=== PATIENT | female | born 1950 | race Caucasian/White ===

== ENCOUNTER 2016-12-13 12:11 | Inpatient (IN) | payer MEDICAID, MEDICARE ==
[~2016-12-13] VITALS: Ht 157.5 cm; Wt 71.0 kg
[~2016-12-13 12:11] MED LIST: CEFOTETAN 2 GM ONE; DEXAMETHASONE 4 MG/ML, 1ML ONE; GLYCOPYRROLATE 0.4 MG/2 ML, 2ML ONE; KETOROLAC 30 MG/1 ML ONE; LIDOCAINE-MPF 2% ,5ML ONE; METOCLOPRAMIDE 5 MG/ML, 2ML ONE; NEOSTIGMINE 1 MG/ML, 10ML ONE; ONDANSETRON 2MG/ML, 2ML ONE; PROPOFOL 10 MG/ML, 20ML ONE; ROCURONIUM 10MG/ML,5ML ONE; SUCCINYLCHOLINE 20 MG/ML, 10ML ONE
[2016-12-13] MEDS ORDERED: SODIUM CHLORIDE FLUSH 10ML SYR IVF ONE (13:00)
[2016-12-13 13:19] LABS: HEMATOCRIT 42.8 % (34.6-47.8); HEMOGLOBIN 14.9 g/dL (11.7-16.4); WHITE BLOOD COUNT 7.1 x10^3/uL (3.4-10)
[2016-12-13 13:31] LABS: ASPARTATE AMINO TRANSFERASE 80 U/L (15-37); BLOOD UREA NITROGEN 11 mg/dL (7-18)
[2016-12-13 13:35] LABS: IS PT STATUS REG ER OR PRE ER? YES
[2016-12-13] MEDS ORDERED: CEFOTETAN PMX 1GM/50ML 50 ML IV ONE (16:00)
[2016-12-13] MEDS ORDERED: CEFOTETAN PMX 1GM/50ML 50 ML ONE (16:40)
[2016-12-13] MEDS ORDERED: D5%-0.45NACL+KCL 20MEQ 1,000 ML IV SCH (17:15)
[2016-12-13] MEDS ORDERED: morphine SULFATE 10 MG/ML, 1ML IVPush PRN (17:30)
[2016-12-13] MEDS ORDERED: ACETAMINOPHEN 325 MG TABLET PO PRN (17:30)
[2016-12-13] MEDS ORDERED: PROMETHAZINE 25 MG/ML, 1ML IM PRN (17:30)
[2016-12-13] MEDS ORDERED: BISACODYL 10 MG SUPP PR PRN (17:30)
[2016-12-13] MEDS ORDERED: ONDANSETRON ODT 4 MG PO PRN (17:30)
[2016-12-13] MEDS: ENOXAPARIN 40 MG/0.4 ML SQ SCH (17:30)
[2016-12-13] MEDS ORDERED: HYDROcodone/APAP 5/325 TABLET PO PRN (17:30)
[2016-12-13] MEDS ORDERED: DOCUSATE 100 MG CAPSULE PO PRN (17:30)
[2016-12-13 19:20] VITALS: BP 128/50
[2016-12-14 01:42] VITALS: BP 150/80
[2016-12-14 05:47] LABS: HEMATOCRIT 38.8 % (34.6-47.8); HEMOGLOBIN 13.5 g/dL (11.7-16.4); WHITE BLOOD COUNT 4.2 x10^3/uL (3.4-10)
[2016-12-14 05:52] LABS: BLOOD UREA NITROGEN 15 mg/dL (7-18)
[2016-12-14 05:55] LABS: ASPARTATE AMINO TRANSFERASE 47 U/L (15-37)
[2016-12-14] MEDS ORDERED: BUPIVACAINE/PF 0.5% ONE (06:49)
[2016-12-14] MEDS ORDERED: EPINEPHRINE 1 MG/ML, 1ML ONE (06:49)
[2016-12-14] MEDS ORDERED: FENTANYL PF 100 MCG/2ML ONE ×2 (07:20→08:36)
[2016-12-14] MEDS: CEFOTETAN PMX 1GM/50ML 50 ML IV SCH ×2 (07:30→19:43)
[2016-12-14] MEDS ORDERED: ACETAMINOPHEN 325 MG TABLET PO PRN ×2 (08:00→15:30)
[2016-12-14] MEDS ORDERED: MEPERIDINE/PF 25MG/0.5ML IVPush PRN (08:00)
[2016-12-14] MEDS ORDERED: PROMETHAZINE 25 MG/ML, 1ML IV PRN (08:00)
[2016-12-14] MEDS ORDERED: OXYcodone 5 MG/5 ML ORAL.SOL UDC PO PRN (08:00)
[2016-12-14] MEDS ORDERED: HYDROmorphone 1 MG/ML, 1ML IV PRN (08:00)
[2016-12-14] MEDS ORDERED: LABETALOL 5MG/ML, 20ML IV PRN (08:00)
[2016-12-14] MEDS ORDERED: MIDAZOLAM 1 MG/ML, 2ML IV PRN (08:00)
[2016-12-14] MEDS ORDERED: hydrALAzine 20 MG/ML, 1ML IV PRN (08:00)
[2016-12-14] MEDS ORDERED: ONDANSETRON 2MG/ML, 2ML IVPush PRN (08:00)
[2016-12-14] MEDS ORDERED: IBUPROFEN 200 MG TABLET PO PRN ×2 (08:30→15:30)
[2016-12-14] MEDS ORDERED: OXYcodone 5 MG/5 ML ORAL.SOL UDC ONE (08:36)
[2016-12-14] MEDS: FENTANYL PF 100 MCG/2ML IV PRN ×2 (08:37→08:50)
[2016-12-14] MEDS ORDERED: D5%-0.45NACL+KCL 20MEQ 1,000 ML IV SCH (08:46)
[2016-12-14] MEDS: HYDROcodone/APAP 5/325 TABLET PO PRN ×2 (15:11→19:43)
[2016-12-14] MEDS ORDERED: morphine SULFATE 10 MG/ML, 1ML IVPush PRN (15:30)
[2016-12-14] MEDS ORDERED: ONDANSETRON ODT 4 MG PO PRN (15:30)
[2016-12-14] MEDS ORDERED: BISACODYL 10 MG SUPP PR PRN (15:30)
[2016-12-14] MEDS ORDERED: DOCUSATE 100 MG CAPSULE PO PRN (15:30)
[2016-12-14] MEDS ORDERED: PROMETHAZINE 25 MG/ML, 1ML IM PRN (15:30)
[2016-12-14] MEDS: ENOXAPARIN 40 MG/0.4 ML SQ SCH (19:43)
[2016-12-14 20:00] VITALS: BP 107/63
[2016-12-14 23:48] VITALS: BP 95/55
[2016-12-15 00:27] LABS: HEMATOCRIT 36.2 % (34.6-47.8); HEMOGLOBIN 12.6 g/dL (11.7-16.4)
[2016-12-15 02:00] VITALS: BP 119/80
[2016-12-15 04:56] VITALS: BP 120/77
[2016-12-15] MEDS ORDERED: ACET-76 PO (06:11)
[2016-12-15] MEDS ORDERED: IBUP-1223 PO (06:12)
[2016-12-15 07:27] VITALS: BP 115/72
[2016-12-15] MEDS: CEFOTETAN PMX 1GM/50ML 50 ML IV SCH (07:54)
[2016-12-15] MEDS: HYDROcodone/APAP 5/325 TABLET PO PRN (08:42)
[2016-12-15] MEDS ORDERED: HYDR-883 PO (10:12)
[2016-12-15 11:45] VITALS: BP 114/70
== END 2016-12-15 12:40 | disposition home or self-care (01) | DRG 419 ==
LOC: ED 13:55 → EDIP 15:51 → 4NOR 19:01
PROVIDERS: ADMIT Surgery; ATTEND Surgery
PROC: 0FT44ZZ Resection of Gallbladder, Percutaneous Endoscopic Approach (ICD-10-PCS; principal; 2016-12-14 07:30)
DX: K81.0 Acute cholecystitis (principal); F17.210 Nicotine dependence, cigarettes, uncomplicated; Z82.5 Family history of asthma and other chronic lower respiratory diseases; Z90.710 Acquired absence of both cervix and uterus; Z82.49 Family history of ischemic heart disease and other diseases of the circulatory system
CPT/HCPCS: 36415; 76700; 80053; 81001; 82247; 83690; 84484; 85025; 87086; 88304; 93005; 96365; J0171; J1100; J1650; J1885; J2405; J2704; J2710; J3010; J3490; J0330; J2765; J3480; S0074